=== PATIENT | male | born 1995 | race Caucasian/White ===

== ENCOUNTER 2016-07-01 05:36 | Emergency (ER) | payer BC ==
[~2016-07-01] VITALS: Ht 180.3 cm; Wt 74.8 kg
[2016-07-01 05:36] VITALS: BP 130/81; PULSE 90; RESP 18; TEMP 98.5; O2SAT 100
--- NOTE | 2016-07-01 05:40 | NUR ---
Patient to ER bed 8 to gown for evaluation. Side rails up. Report given to Mihcelle RIOS.
--- NOTE | 2016-07-01 05:52 | NUR ---
Patient to ER C/O severe nasal congestion, worse for the past 1 day. Patient C/O frontal pressure, afebrile. AAOx4, unlabored breathing, no signs of acute distress.
--- NOTE | 2016-07-01 05:57 | NUR ---
ER MD Davidson at bedside for evaluation
[2016-07-01] MEDS ORDERED: IBUPROFEN 800 MG TABLET PO ONE (06:15)
[2016-07-01] MEDS ORDERED: PSEUDOEPHEDRINE HCL 120 MG PO SCH (06:15)
[2016-07-01] MEDS ORDERED: PSEUDOEPHEDRINE HCL 30 MG TABLET ONE (06:29)
[2016-07-01] MEDS ORDERED: PSEUDOEPHEDRINE HCL 30 MG TABLET PO ONE (06:30)
[2016-07-01 06:41] VITALS: BP 127/76; PULSE 83; RESP 17; TEMP 98.4; O2SAT 99
--- NOTE | 2016-07-01 06:41 | NUR ---
Patient given written and verbal discharge instructions and verbalizes understanding. ER MD Davidson discussed with patient the results and treatment provided. Patient in stable condition. ID arm band removed. Rx of motrin & sudafed given. Patient educated on pain management and to follow up with PMD. Pain Scale 0/10. Opportunity for questions provided and answered.
== END 2016-07-01 06:41 | disposition home or self-care (01) ==
LOC: SED 05:36
DX: J06.9 Acute upper respiratory infection, unspecified (principal)
CPT/HCPCS: 99283